=== PATIENT | female | born 1980 | race Caucasian/White ===

== ENCOUNTER 2019-01-12 15:34 | Emergency (ER) | payer OTHER ==
[~2019-01-12] VITALS: Ht 160 cm; Wt 60.8 kg
[~2019-01-12 15:34] MED LIST: COLACE100 MG PO; LEVONORGESTREL1 TA1 PO; LIDODERM51 TOP; MEVACOR20 MG PO; NORCO1 TA2 PO; ROB500 PO
[2019-01-12 15:46] VITALS: Ht 160 cm; Wt 60.8 kg
[2019-01-12 16:30] LABS: BASOPHIL % 0.4 % (0-2); PLATELET COUNT 178 x10^3mcL (130-400); RED CELL DISTRIBUTION WIDTH 13.1 % (11.5-14.5)
[2019-01-12 16:52] LABS: UA SPECIFIC GRAVITY <=1.005 (1.005-1.035); microscopic required? YES; urine erythrocyte 3+ (NEGATIVE)
[2019-01-12 19:01] VITALS: BP 110/73
== END 2019-01-12 19:15 | disposition home or self-care (01) ==
LOC: ED 15:34
DX: O03.9 Complete or unspecified spontaneous abortion without complication (principal); E78.00 Pure hypercholesterolemia, unspecified
CPT/HCPCS: 36415